=== PATIENT | female | born 1985 | race Caucasian/White ===

== ENCOUNTER 2019-10-10 21:32 | Emergency (ER) | payer OTHER ==
[~2019-10-10] VITALS: Ht 157.4 cm; Wt 86.2 kg
[~2019-10-10 21:32] MED LIST: BACTRIM DS 8001 TA1 PO; BENTYL10 MG PO; CEPHALEXIN500 M1 PO; CLINDAMYCIN HC300 MG PO; DARVOCET N 1001 TAB PO; FLINTSTONES COM1 CT1 PO; FLOMAX0.4 MG PO; HYDROCODONE BIT1 T11 PO; IBUPROFEN600 MG PO; MACROBID100 M1 PO; MOTRIN800 MG PO; MULTIVITAMIN FO1 CAP PO; Motrin,Rufen800 MG PO; NKHM; PERCOCET 325 MG1 TA2 PO; SEPTDS PO; SEPTRA DS 800 M1 TAB PO; TRAMADOL HCL50 MG PO; VICO10300 PO; ZITHROMAX250 MG PO; ZOFRAN ODT4 MG SL
[2019-10-10] MEDS ORDERED: TESSALON PERLE100 M1 PO (21:56)
[2019-10-10] MEDS ORDERED: DOXYCYCLINE100 M3 PO (21:56)
== END 2019-10-10 22:06 | disposition home or self-care (01) ==
LOC: ED 21:32
DX: J20.9 Acute bronchitis, unspecified (principal); F17.200 Nicotine dependence, unspecified, uncomplicated; Z79.899 Other long term (current) drug therapy

== ENCOUNTER → 2020-07-02 | Outpatient (CLI) | payer OTHER ==
[~2020-07-02] MED LIST changes: +DOXYCYCLINE100 M3 PO; +TESSALON PERLE100 M1 PO
== END | disposition home or self-care (01) ==
LOC: COVID19 17:11
PROVIDERS: ATTEND Nurse Practitioner Family
DX: Z20.828 Contact with and (suspected) exposure to other viral communicable diseases (principal)

== ENCOUNTER → 2021-08-05 | Outpatient (CLI) | payer OTHER | END | disposition home or self-care (01) | LOC: COVID19 16:14 | PROVIDERS: ATTEND Internal Medicine | DX: Z11.52 Encounter for screening for COVID-19 (principal) ==

== ENCOUNTER → 2022-07-22 | Outpatient (CLI) | payer OTHER ==
[2022-07-22 17:32] LABS: BILIRUBIN Negative (Negative); BLOOD 2+ (Negative); CLARITY Turbid (Clear); COLOR Yellow (Yellow); GLUCOSE Negative (Negative); KETONE Trace (Negative); LEUKO ESTERASE 3+ (Negative); NITRITE Positive (Negative); SPECIFIC GRAVITY 1.025 (1.001-1.030)
[2022-07-22 17:52] LABS: BACTERIA 4+; WBC TNTC wbc/hpf (0-5)
== END | disposition home or self-care (01) ==
LOC: RESCLI 12:57
PROVIDERS: ATTEND Internal Medicine
DX: R10.9 Unspecified abdominal pain (principal); E66.9 Obesity, unspecified; F17.200 Nicotine dependence, unspecified, uncomplicated; Z98.890 Other specified postprocedural states; Z79.899 Other long term (current) drug therapy

== ENCOUNTER → 2022-07-23 | Outpatient (CLI) | payer OTHER ==
[2022-07-23 10:19] LABS: BASO # 0.1 10*3/uL (0.0-0.1); BASO % 0.6 % (0.0-1.0); EOS # 0.4 10*3/uL (0.0-0.4); EOS % 4.3 % (1.0-4.0); HEMATOCRIT 43.3 % (37.0-47.0); LYMPH # 2.2 10*3/uL (1.3-4.4); LYMPH % 26.9 % (27.0-41.0); MEAN CELL VOLUME 92.1 fl (81.0-99.0); MEAN CORPUSCULAR HGB 30.9 pg (27.0-31.0); MEAN CORPUSCULAR HGB CONC 33.5 g/dl (33.0-37.0); MEAN PLATELET VOLUME 9.2 fl (9.6-12.3); MONO # 0.7 10*3/uL (0.1-1.0); MONO % 8.6 % (3.0-9.0); NEUT # 4.8 10*3/uL (2.3-7.9); NEUT % 58.9 % (47.0-73.0); PLATELET COUNT AUTOMATED 341 10*3/uL (130-400); RED CELL DISTRI WIDTH 11.5 % (0-14.5); WHITE BLOOD COUNT 8.1 10*3/uL (4.8-10.8)
[2022-07-23 10:43] LABS: ALKALINE PHOSPHATASE 101 U/L (46-116); BUN 10 mg/dl (9-23); CHLORIDE 107 mmol/L (98-107); CHOLESTEROL 184 mg/dL (<200); CREATININE 0.97 mg/dL (0.55-1.02); LDL CHOLESTEROL 130 mg/dL (9-159); SGPT/ALT 20 U/L (10-49); SODIUM 142 mmol/L (136-145); TOTAL PROTEIN 7.4 gm/dL (6.0-8.0); TRIGLYCERIDES 122 mg/dl (<150)
== END | disposition home or self-care (01) ==
LOC: LAB 09:59
PROVIDERS: ATTEND Internal Medicine
DX: E66.9 Obesity, unspecified (principal)

== ENCOUNTER → 2022-08-15 | Outpatient (CLI) | payer OTHER | END | disposition home or self-care (01) | LOC: CT 08-13 08:00 | PROVIDERS: ATTEND Internal Medicine | DX: N13.30 Unspecified hydronephrosis (principal); N20.0 Calculus of kidney; Z90.49 Acquired absence of other specified parts of digestive tract ==

== ENCOUNTER 2022-10-08 18:39 | Emergency (ER) | payer OTHER ==
[~2022-10-08] VITALS: Wt 90.7 kg
[2022-10-08] MEDS ORDERED: METHOCARBAMOL500 M1 PO (22:29)
== END 2022-10-08 22:11 | disposition home or self-care (01) ==
LOC: ED 18:39
DX: S33.5XXA Sprain of ligaments of lumbar spine, initial encounter (principal); Z98.890 Other specified postprocedural states; V89.2XXA Person injured in unspecified motor-vehicle accident, traffic, initial encounter; Y93.89 Activity, other specified; Y92.410 Unspecified street and highway as the place of occurrence of the external cause; Y99.8 Other external cause status

== ENCOUNTER → 2022-10-09 | Outpatient (CLI) | payer OTHER ==
[~2022-10-09] MED LIST changes: +METHOCARBAMOL500 M1 PO
== END | disposition home or self-care (01) ==
LOC: RESCLI 01:01
PROVIDERS: ATTEND Internal Medicine
DX: K21.9 Gastro-esophageal reflux disease without esophagitis (principal); Z30.42 Encounter for surveillance of injectable contraceptive; F17.210 Nicotine dependence, cigarettes, uncomplicated; Z82.49 Family history of ischemic heart disease and other diseases of the circulatory system; Z98.890 Other specified postprocedural states; Z79.899 Other long term (current) drug therapy

== ENCOUNTER 2023-04-03 22:35 | Emergency (ER) | payer OTHER ==
[~2023-04-03] VITALS: Ht 157.4 cm; Wt 90.7 kg
[2023-04-03] MEDS ORDERED: CEPHALEXIN500 M1 PO (23:07)
[2023-04-03] MEDS ORDERED: VIBRAMYCIN100 MG PO (23:07)
== END 2023-04-03 23:12 | disposition home or self-care (01) ==
LOC: ED 22:35
DX: N76.2 Acute vulvitis (principal); Z98.890 Other specified postprocedural states

== ENCOUNTER → 2024-10-06 | Outpatient (CLI) | payer OTHER ==
[~2024-10-06] MED LIST changes: +VIBRAMYCIN100 MG PO
== END | disposition home or self-care (01) ==
LOC: MAMMO 01:17
PROVIDERS: ATTEND Nurse Practitioner Women's Health
DX: Z12.31 Encounter for screening mammogram for malignant neoplasm of breast (principal)